=== PATIENT | male | born 1930 | race Caucasian/White ===

== ENCOUNTER → 2016-05-24 | Outpatient (CLI) | payer MEDICARE, BC ==
[2016-05-24 17:08] LABS: Anion Gap 9 mmol/L; Blood Urea Nitrogen 17 mg/dL (9-20); Carbon Dioxide 26 mmol/L (22-30); Chloride 104 mmol/L (98-107); Non-African American GFR(MDRD) >60 (>60 ml/min/1.73 sqM); Potassium 4.4 mmol/L (3.5-5.1); Sodium 139 mmol/L (137-145)
== END | disposition home or self-care (01) ==
LOC: LABWHC1 16:31
PROVIDERS: ATTEND Internal Medicine Cardiovascular Disease
DX: R00.1 Bradycardia, unspecified (principal)
CPT/HCPCS: 36415; 80051; 82565; 84443; 84520

== ENCOUNTER → 2016-06-04 | Outpatient (CLI) | payer MEDICARE, BC ==
[2016-06-04 10:01] LABS: EKG EKG PERFORMED
[2016-06-04 11:09] LABS: Basophils # (A) 0.1 k/uL (0-0.2); Basophils % (A) 1 %; CHCM 32.8; Eosinophils # (A) 0.1 k/uL (0-0.7); Eosinophils % (A) 1 %; HCT 46.3 % (39.0-53.0); HDW 2.48; Luc # (Auto) 0.14; Luc % (Auto) 2; Lymphocytes # (A) 1.4 k/uL (1.0-4.8); Lymphocytes % (A) 15 %; MCH 29.8 pg (25.0-35.0); MCHC 32.4 g/dL (31.0-37.0); MCV 91.8 fL (80.0-100.0); Mean Platelet Volume 7.2; Monocytes # (A) 0.4 k/uL (0-1.0); Monocytes % (A) 4 %; Neutrophils % (A) 76 %; RBC 5.04 m/uL (4.30-5.90); RDW 13.1 % (11.5-15.5); WBC 9.2 k/uL (3.8-10.6); WBC (Perox) 8.93
[2016-06-04 11:28] LABS: Appearance,Urine Clear (Clear); Bilirubin,Urine Negative (Negative); Glucose,Urine (UA) Negative (Negative); Ketones,Urine Negative (Negative); Leukocyte Esterase,Urine Negative (Negative); Mucus,Urine Rare /hpf; Nitrite,Urine Negative (Negative); Particle Count 2239; Protein,Urine 1+ (Negative); Specific Gravity,Urine 1.015 (1.001-1.035); Squamous Epithelial Cell,Urine <1 /hpf (0-4); UA Billing (MACRO vs. MICRO) MICRO; Urobilinogen,Urine <2.0 mg/dL (<2.0); WBC,Urine <1 /hpf (0-5)
[2016-06-04 11:32] LABS: ALT 33 U/L (21-72); AST 33 U/L (17-59); Alkaline Phosphatase 55 U/L (38-126); Anion Gap 9 mmol/L; Blood Urea Nitrogen 22 mg/dL (9-20); Calcium 9.5 mg/dL (8.4-10.2); Carbon Dioxide 25 mmol/L (22-30); Chloride 108 mmol/L (98-107); Glucose 177 mg/dL (74-99); Non-African American GFR(MDRD) >60 (>60 ml/min/1.73 sqM); Potassium 4.2 mmol/L (3.5-5.1); Sodium 142 mmol/L (137-145); Total Bilirubin 0.8 mg/dL (0.2-1.3); Total Protein 6.5 g/dL (6.3-8.2)
[2016-06-04 12:35] LABS: INR 1.1 (<1.1); Prothrombin Time 10.8 sec (9.0-12.0)
== END | disposition home or self-care (01) ==
LOC: LABPAT 09:50
PROVIDERS: ATTEND Orthopaedic Surgery
DX: Z01.818 Encounter for other preprocedural examination (principal); Z01.812 Encounter for preprocedural laboratory examination; I44.0 Atrioventricular block, first degree
CPT/HCPCS: 80053; 81001; 85025; 85610; 85730; 87070; 93005

== ENCOUNTER 2016-06-14 06:11 | Inpatient (IN) | payer MEDICARE, BC ==
--- NOTE | 2016-05-27 22:19 | CONS ---
DATE OF CONSULTATION: REASON FOR CONSULTATION: Presurgical medical clearance Mr. Luis Chaney is an 85-year-old gentleman who has been having problems with left knee. He cannot ambulate. Pain control is difficult at times. Plans are for surgery on June [address] Justice at [facility] for left knee arthroplasty. The patient does have a past medical history of hypertension, type 2 diabetes, atherosclerotic heart disease, BPH. He is also obese. He does have hyperlipidemia. Home medications include: 1. Glipizide 10 mg twice a day for sugar. 2. Finasteride 5 mg daily for BPH. 3. Losartan 50 mg daily for hypertension. 4. He has used naproxen 500 mg as needed p.r.n. for pain. He has had a previous right knee surgery. He has had trigger finger release and carpal tunnel bilaterally. A previous appendectomy and hernia repair also in the past. He has element of spinal stenosis and also previous history of prostate malignancy and no evidence of metastatic disease. Review of systems is negative for any unusual shortness of breath and chest pain. No nausea, vomiting. Denied any urinary or bowel symptoms. No visual disturbances. Basically related more to the left knee pain. Family history is positive for diabetes. SOCIAL HISTORY: The patient does not smoke. He lives locally with his and no history of any excessive alcohol usage. On physical examination, he is an alert gentleman in no acute distress, pleasant, his blood pressure is 130/60 with a pulse of 64 and regular. Height 68 inches with a weight of 256.4 pounds and his BMI is 39. Head and neck exam unremarkable. No carotid bruits or adenopathy or thyromegaly detected. Lungs were clear. Heart tones were regular, with without murmurs. ABDOMEN: Obese but nontender without organomegaly. Extremities revealed some grade 1 edema. NEUROLOGICAL: He is alert and oriented. Cranial nerves intact. No focal weakness noted. The patient has had labs done in the hospital and also had recent check-up and EKG by cardiology who cleared him for from the proposed surgery. At this point, the patient does have cardiovascular risk factors along with his age and obesity, which due raise his risk to some extent and other past medical history as stated above, but generally he has cardiovascular status is stable and I see no definite contraindication to planned surgery. We recommended to the patient to hold his glipizide the night prior to surgery. His sugars run a bit low in the morning. He can remain on his finasteride and losartan and take his losartan was a small sip of water in the morning prior to his surgery. Place in the record on this chart. Once again scheduled for the first of June. Patient to call if any questions, concerns or problems. Please note the patient has been made aware to stop his naproxen 7 days prior to the surgery, not to take any anti-inflammatory medications. CARLOS
[2016-06-09 15:32] VITALS: BMI 45.1
[~2016-06-14 06:11] MED LIST: ACETAMINOPHEN TAB 500 MG TAB PO ONE; DEXAMETHASONE SOD PHOSPHATE 10 MG/ML 1 ML VIAL IV ONE; HYDROmorphone 1 MG/ML 1 ML SYRINGE IVP PRN; LIDOCAINE 1% 20 ML VIAL (10MG/ML) FOR IV START INTRADERMA PRN; MELOXICAM 7.5 MG TAB PO ONE; MIDAZOLAM 2 MG/2 ML VIAL IV PRN; ONDANSETRON 4 MG/2 ML VIAL IVP ONE; TRANEXAMIC ACID 1,000 MG in SODIUM CHLORIDE 0.9% 100 ML IVPB ONE; ceFAZolin 2 GM in SODIUM CHLORIDE 0.9% 100 ML IVPB ONE
[2016-06-14] MEDS: LACTATED RINGERS 1,000 ML IV SCH (07:08)
[2016-06-14 07:23] LABS: Glucose,Whole Blood 84 mg/dL (75-99)
[2016-06-14] MEDS ORDERED: ROPIVACAINE 246.25 MG, EPINEPHrine 0.5 MG, KETOROLAC 30 MG, cloNIDine HCL/PF 80 MCG, WA... MISCELLANE STA ×5 (07:41)
[2016-06-14] MEDS ORDERED: PHENYLEPHRINE-0.9% NACL SYG 1 MG/10 ML SYRINGE ONE (07:53)
[2016-06-14] MEDS ORDERED: SODIUM CHLORIDE 0.9% 100 ML BAG ONE (07:53)
[2016-06-14] MEDS ORDERED: GLYCOPYRROLATE 0.2 MG/ML 2 ML VIAL ONE (07:53)
[2016-06-14] MEDS ORDERED: ePHEDrine 50 MG/ML 1 ML AMP ONE (07:53)
[2016-06-14] MEDS ORDERED: TRANEXAMIC ACID 1,000 MG/10 ML VIAL ONE (07:53)
[2016-06-14] MEDS ORDERED: PROPOFOL 10 MG/ML 20 ML VIAL IV ONE (07:53)
[2016-06-14] MEDS ORDERED: fentaNYL (PF) 50 MCG/ML 2 ML AMP ONE (07:53)
[2016-06-14] MEDS ORDERED: MIDAZOLAM 2 MG/2 ML VIAL ONE (07:53)
[2016-06-14] MEDS ORDERED: LACTATED RINGERS 1,000 ML IV ONE (08:48)
[2016-06-14] MEDS ORDERED: ceFAZolin 3,000 MG in SODIUM CHLORIDE 0.9% IRRIGATIO 3,000 ML IRRIGATION ONE (08:48)
[2016-06-14] MEDS ORDERED: DIAZEPAM 5 MG TAB PO PRN ×2 (10:55)
[2016-06-14] MEDS ORDERED: ACETAMINOPHEN TAB 325 MG TAB PO PRN (10:55)
[2016-06-14] MEDS ORDERED: BISACODYL 10 MG SUPP RECTAL PRN (10:55)
[2016-06-14] MEDS ORDERED: NA PHOS,M-B/NA PHOS,DI-BA 133 ML ENEMA RECTAL PRN (10:55)
[2016-06-14] MEDS ORDERED: HYDROmorphone 1 MG/ML 1 ML SYRINGE IVP PRN ×3 (10:55)
[2016-06-14] MEDS ORDERED: ONDANSETRON 4 MG/2 ML VIAL IVP PRN (10:55)
[2016-06-14] MEDS ORDERED: NALOXONE 0.4 MG/ML 1 ML VIAL IV PRN (10:55)
[2016-06-14] MEDS ORDERED: MAGNESIUM HYDROXIDE 2,400 MG/10 ML CUP PO PRN (10:55)
[2016-06-14] MEDS ORDERED: HYDROcodone/APAP 5-325MG 1 EACH TAB PO PRN (10:55)
[2016-06-14 11:23] LABS: Glucose,Whole Blood 139 mg/dL (75-99)
--- NOTE | 2016-06-14 11:26 | XR ---
EXAMINATION TYPE: XR knee limited LT DATE OF EXAM ORDERED: 06/14/2016 11:19 AM HISTORY: Postop arthroplasty. COMPARISON: None. FINDINGS: A left knee arthroplasty has been performed. Prosthetic elements appear in good position. There is subcutaneous and intra-articular air. IMPRESSION: STATUS POST LEFT ARTHROPLASTY.
[2016-06-14] MEDS: HYDROcodone/APAP 5-325MG 1 EACH TAB PO PRN ×2 (14:03→20:36)
[2016-06-14] MEDS: hydrOXYzine PAMOATE 25 MG CAP PO PRN ×2 (14:04→20:35)
--- NOTE | 2016-06-14 14:40 | P.OP ---
Date of Procedure: 06/14/16 Procedure(s) Performed: PREOPERATIVE DIAGNOSIS: Left knee severe osteoarthritis with genu varum POSTOPERATIVE DIAGNOSIS: Left knee severe osteoarthritis with genu varum OPERATION: Left knee cemented total replacement arthroplasty. ANESTHESIA: Spinal ESTIMATED BLOOD LOSS: 100 ml. FOOD SERVICE MANAGER: Ainsley Evangelista PA-C (assistance with: patient positioning, retraction, exposure, hemostasis, leg positioning, implantation, irrigation, closure, dressing) COMPLICATIONS: None apparent. COMPONENTS IMPLANTED: Adbulaziz tivanium NexGen posterior cruciate substituting. Metal on polyethylene synthetic articulation INDICATIONS: Mr. Chaney is an 85-year-old male with a history of severe left knee osteoarthritis. He has already undergone right knee replacement in the past. The operation of knee replacement has been discussed at length in the office, as well as potential risks and complications. These are inclusive of, but not limited to: bleeding, infection, scarring, discomfort, blood vessel and nerve damage, need for further surgery, failure to relieve symptoms, persistence , recurrence, or worsening of problems, loosening, dislocation, wear, blood clot , pulmonary embolism, , gait dysfunction, stiffness, and other risks as discussed in the office. 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 Considering that skin testing is generally not a very accurate way of testing in vivo metallic hypersensitivity, I feel that it is prudent to proceed with implantation of components that do not contain nickel. We will therefore be using the NexGen tivanium implants. The patient elects to proceed and the consent form has been signed. PROCEDURE: The patient was taken to the operating room and positioned on the operating room table in the supine position. Anesthesia was initiated. Care was taken to make sure that all pressure points were adequately padded. The operative lower extremity was prepped and draped in the usual aseptic fashion using ChloraPrep. Ioban drape was used for the case and the patient received intravenous antibiotics within one hour of the incision. A pneumotourniquet and leg ray were used for the case. The limb was exsanguinated with an Esmarch bandage and the tourniquet was inflated to 350 mmHg. Time-out was called confirming the patient's identity, side, procedure and administration of antibiotics. The incision was then created midline directly over the knee, carried down through skin and into the subcutaneous tissues and down to fascia. Full thickness subcutaneous medial flap was developed. Medial parapatellar arthrotomy was performed and the interior of the knee was inspected. There was end-stage osteoarthritis of the knee with a mild to moderate genu varum type deformity. Also noted was material and mildly inflamed synovial tissue consistent with chronic gouty arthritis. The fat pad was excised and proximal medial release on the tibia was completed using meticulous dissection and a curved osteotome. The anterior cruciate ligament was taken down. Note was made of significant attrition of the anterior and significant degenerative appearance of the posterior cruciate ligaments. The exposure was excellent. The knee was flexed 90 degrees and the patella was everted. A spot was chosen on the femur approximately 1 cm anterior to the posterior cruciate ligament insertion and an intramedullary hole was created within the femur. The intramedullary guide was then set to 5 degrees of valgus. The distal cutting block was attached and pinned into position. An appropriate amount of distal femoral resection was set. The oscillating saw was then used to make the distal femoral cut. This cut was confirmed to be flat with the flat end of an osteotome. The retractors were placed around the tibia and the tibial surface was addressed. The angle and depth of resection was adjusted using an extramedullary cutting guide. The guide had a built-in 3 degree posterior slope cut. Once the cutting guide was adjusted appropriately and in line with the axis of the tibia and confirmed to be in good position in relation to the second metatarsal and transmalleolar axis, the tibial cut was then created with protection of the posterior neurovascular structures and the collateral ligaments. The tibial cut surface was removed and sized. Femoral sizing was then accomplished using anterior referencing. Care was taken to analyze the posterior condyles for signs of deficiency or severe wear, and adjustments to the guide were made, as appropriate. 3 degree external rotation pins were placed. The cutting jig for the femur was applied to these pins. The planned cuts were further analyzed prior to performing them with the oscillating saw. No femoral notching was produced. Bone fragments were removed and the cut surfaces were finished, as necessary, with a reciprocating saw. Spacer block technique was then used to confirm that the flexion and extension gaps were equal. Soft tissue releases and adjustment of the tibial and/or femoral cuts were made, as necessary, until the gaps were equal. This included release of the posterior cruciate ligament, which was tight in this patient and , if left unreleased, would have resulted in poor kinematics and possibly early loosening. The femur was then further finished for a posterior cruciate ligament substituting component. Patellar resurfacing was performed using a reamer. The size of the required patellar component was estimated and the patellar surface was then reamed down to a residual thickness which would recreate the [place] thickness with the component. The placement of the patellar component was influenced by the degree of patellar subluxation, if any, noted on the preoperative x-rays. Prior to placing trial components, anesthetic solution consisting of ropivicaine with epinephrine, ketorolac, and clonidine was injected carefully and methodically in a grid pattern using aspiration technique into the soft tissue around the knee circumferentially, starting with the deeper tissues first and progressing to fascia, and then finally the skin/subcutaneous tissue. Particular care was taken when injecting the posterior capsule. The trial components were inserted. The tibial tray was allowed to self center and the patella was noted to track very well. The position of the tibial component was marked and the tibia was then finished for a stemmed tibial component. Cement was mixed on the back table and applied to the final components. Trial components were removed and the cut surfaces of the bone were pulse lavaged thoroughly and dried. Cement was then applied to the tibial surface and pressurized into the surface using finger pressurization technique. The tibial component was then applied and excess cement was removed after it was impacted securely and noted to be flush with the cut surface. In similar fashion, the cement was applied to the cut femoral surface, pressurized in using finger pressurization and the component was impacted into place. Excess cement was removed. The polyethylene spacer was then implanted and locked into position. The patellar component was then applied in similar technique and a patellar clamp was used to hold the patella in place as the cement hardened. Once the cement had fully hardened, the knee was reinspected. Any other cement extrusion was removed and final kinematic testing showed range of motion from 0 to 130 degrees with excellent stability, both medially and laterally and appropriate alignment of the leg. Patellar tracking was excellent. The knee was then thoroughly pulse lavaged with normal saline. The tourniquet was deflated and hemostasis was obtained with electrocautery and IV tranexamic acid, 1 g given prior to inflation of the tourniquet and another gram given at the time of closure. Closure was with #2 Ethibond in the fascia and supplemented with #2 Quill, 2-0 Vicryl suture was used for the subcutaneous tissues and 3-0 Quill for the skin. Dermabond/Steri-Strips were then applied. A lightly compressive dressing was applied using Webril and an Víctor wrap. The patient was then transferred [facility] and taken to the recovery room in stable condition. Sponge and needle counts were correct.
[2016-06-14] MEDS: ceFAZolin 2 GM in SODIUM CHLORIDE 0.9% 100 ML IVPB SCH (15:22)
[2016-06-14] MEDS: SODIUM CHLORIDE 0.9% 1,000 ML IV SCH (15:23)
[2016-06-14] MEDS ORDERED: ACETAMINOPHEN TAB 500 MG TAB PO PRN (17:20)
[2016-06-14] MEDS ORDERED: diphenhydrAMINE 25 MG CAP PO PRN (17:25)
--- NOTE | 2016-06-14 17:42 | P.PN ---
Progress Note - Text The patient is an 85-year-old gentleman who underwent left knee arthroplasty earlier today. He does have comorbidities including underlying obesity, type 2 diabetes, hypertension, and atherosclerotic heart disease along with BPH and hyperlipidemia. Presently though he states he is feeling well. He is sitting in the chair at the side of the bed. He states his pain has been very well controlled. He denies any chest pain or shortness of breath. No nausea or vomiting. Patient's pulse is 72 and blood pressure 128/81 and he is 99% saturated on 2 L. Temperature is 97.1. Head and neck exam unremarkable. Lung and heart exam was clear and regular. Abdomen is obese but nontender. No unusual distal edema noted. No focal neurological deficits. He is alert and oriented. Blood sugar earlier was 139. Impressions and plans: Patient with comorbidities as stated above. We will renew his diabetic and cardiac/blood pressure medications. Advance as per orthopedics.
[2016-06-14 17:50] LABS: Glucose,Whole Blood 266 mg/dL (75-99)
[2016-06-14] MEDS: FINASTERIDE 5 MG TAB PO SCH (20:11)
[2016-06-14] MEDS: glipiZIDE 10 MG TAB PO SCH (20:11)
[2016-06-14] MEDS: ASPIRIN 325 MG TAB PO SCH (20:11)
[2016-06-14] MEDS: INSULIN LISPRO (humaLOG) 300 UNIT/3 ML VIAL SQ SCH (20:12)
[2016-06-14] MEDS: SENNOSIDES-DOCUSATE SODIUM 1 EACH TAB PO SCH (20:12)
[2016-06-14 20:22] LABS: Glucose,Whole Blood 277 mg/dL (75-99)
[2016-06-14] MEDS ORDERED: TEMAZEPAM 15 MG CAP PO PRN (22:00)
[2016-06-15] MEDS: ceFAZolin 2 GM in SODIUM CHLORIDE 0.9% 100 ML IVPB SCH (00:26)
[2016-06-15] MEDS: LACTATED RINGERS 1,000 ML IV SCH ×2 (01:28→21:44)
[2016-06-15] MEDS: HYDROcodone/APAP 5-325MG 1 EACH TAB PO PRN ×4 (04:09→20:16)
[2016-06-15] MEDS: hydrOXYzine PAMOATE 25 MG CAP PO PRN ×4 (04:09→20:17)
[2016-06-15 07:24] LABS: Glucose,Whole Blood 149 mg/dL (75-99)
--- NOTE | 2016-06-15 07:40 | P.PN ---
Progress Note - Text The patient is a 85-year-old gentleman who yesterday underwent left knee arthroplasty. Today he is up in bed alert and oriented. States his left knee pain is fairly well-controlled. He denies any problems with chest pain or shortness of breath. No nausea or vomiting. He does have comorbidities that include obesity, type 2 diabetes, hypertension and atherosclerotic heart disease along with BPH and hyperlipidemia. Vital signs this morning reveal temperature 97.2 last pulse was 67 and respirations 16 and nonlabored. Blood pressure 112/54 and he is 95% saturated on room air. Lung and heart examination is clear and regular. Abdomen nontender. No distal extremity edema. Once again he is alert and oriented with normal cranial nerves and no focal weakness noted. Laboratory: Blood sugars in the night were up in the 200s but are now down to 149 this morning. Impressions and plans: Patient is on his diabetic medication and blood pressure medication. He is on Accu-Cheks and coverage if needed. Can be progressed as per orthopedics.
[2016-06-15 07:42] LABS: Basophils % (A) 0 %; CH 30.2; CHCM 33.2; Eosinophils % (A) 0 %; HCT 38.4 % (39.0-53.0); HDW 2.48; HGB 12.6 gm/dL (13.0-17.5); Luc # (Auto) 0.24; Luc % (Auto) 1; Lymphocytes # (A) 0.9 k/uL (1.0-4.8); Lymphocytes % (A) 5 %; MCHC 32.8 g/dL (31.0-37.0); MCV 91.4 fL (80.0-100.0); Mean Platelet Volume 7.1; Monocytes # (A) 1.1 k/uL (0-1.0); Monocytes % (A) 6 %; Neutrophils # (A) 15.1 k/uL (1.3-7.7); Neutrophils % (A) 87 %; RDW 12.9 % (11.5-15.5); WBC 17.3 k/uL (3.8-10.6); WBC (Perox) 18.34
[2016-06-15] MEDS ORDERED: LOSARTAN 50 MG TAB PO SCH (09:00)
--- NOTE | 2016-06-15 09:10 | P.PN ---
Subjective Principal diagnosis: Status post left total knee arthroplasty Patient is pleasant 85-year-old male seen at bedside this morning. He is postop day #1 from left total knee arthroplasty Per Dr. Justice. He's doing well. He has some pain at the surgical site as expected. He has no new complaints. He denies numbness, tingling or calf pain. Review of systems negative for fever, chills, chest pain, shortness breath, nausea, vomiting, dizziness, headaches, slurred speech or other. Objective - Vital Signs Vital signs: Vital Signs Temp 97.2 F L 06/15/16 07:36 Pulse 63 06/15/16 07:36 Resp 16 06/15/16 01:15 BP 112/54 06/15/16 07:36 Pulse Ox 95 06/15/16 07:36 Intake & Output 06/14/16 06/15/16 06/15/16 18:59 06:59 18:59 Intake Total 1711 500 Output Total 425 1200 350 Balance 1286 -700 -350 Weight 115.666 kg Intake: IV 1711 500 Sodium Chloride 0.9% 1, 500 000 ml @ 50 mls/hr IV . Q20H [facility] Rx#:[id number] Output: Urine 375 1200 350 Uretheral (Rahman) 1200 350 Estimated Blood Loss 50 Other: Voiding Method Indwelling Catheter Indwelling Catheter - Exam Social left lower shoulder shows a benign surgical wound. There is no active bleeding, dehiscence or drainage. Neurovascular status intact with motor and sensation throughout the left lower extremity. Calf is soft and nontender. 2+ dorsalis pedis pulse and less than 2 second cap refill is present. - Constitutional General appearance: Present: no acute distress - Psychiatric Psychiatric: Present: A&O x's 3, appropriate affect, intact judgment & insight - Labs CBC & Chem 7: 06/15/16 06:51 Labs: Abnormal Lab Results - Last 24 Hours (Table) 06/14/16 06/14/16 06/14/16 Range/Units 11:21 17:48 20:09 WBC (3.8-10.6) k/uL RBC (4.30-5.90) m/uL Hgb (13.0-17.5) gm/dL Hct (39.0-53.0) % Neutrophils # (1.3-7.7) k/uL Lymphocytes # (1.0-4.8) k/uL Monocytes # (0-1.0) k/uL POC Glucose (mg/dL) 139 H 266 H 277 H (75-99) mg/dL 06/15/16 06/15/16 Range/Units 06:51 07:22 WBC 17.3 H (3.8-10.6) k/uL RBC 4.20 L (4.30-5.90) m/uL Hgb 12.6 L (13.0-17.5) gm/dL Hct 38.4 L (39.0-53.0) % Neutrophils # 15.1 H (1.3-7.7) k/uL Lymphocytes # 0.9 L (1.0-4.8) k/uL Monocytes # 1.1 H (0-1.0) k/uL POC Glucose (mg/dL) 149 H (75-99) mg/dL Assessment and Plan (1) Osteoarthritis of left knee Narrative/Plan: We'll continue with routine postop orthopedic protocol including pain management , wound care, physical therapy, DVT prophylaxis and medical management. Plan is for him to discharge to extended care facility for rehabilitation in the next 2 days. Status: Acute Time with Patient: Less than 30
[2016-06-15] MEDS: INSULIN LISPRO (humaLOG) 300 UNIT/3 ML VIAL SQ SCH ×4 (09:22→13:03)
[2016-06-15] MEDS: glipiZIDE 10 MG TAB PO SCH ×2 (09:24→20:19)
[2016-06-15] MEDS: ASPIRIN 325 MG TAB PO SCH ×2 (09:24→20:19)
[2016-06-15] MEDS: MELOXICAM 7.5 MG TAB PO SCH (09:25)
[2016-06-15] MEDS: LOSARTAN 50 MG TAB PO SCH (09:25)
[2016-06-15] MEDS: SODIUM CHLORIDE 0.9% 1,000 ML IV SCH ×2 (09:30→21:44)
[2016-06-15 12:12] LABS: Glucose,Whole Blood 152 mg/dL (75-99)
[2016-06-15 16:52] LABS: Glucose,Whole Blood 93 mg/dL (75-99)
[2016-06-15] MEDS: FINASTERIDE 5 MG TAB PO SCH (20:19)
[2016-06-15] MEDS: SENNOSIDES-DOCUSATE SODIUM 1 EACH TAB PO SCH (20:19)
[2016-06-15 20:52] LABS: Glucose,Whole Blood 103 mg/dL (75-99)
[2016-06-16] MEDS: HYDROcodone/APAP 5-325MG 1 EACH TAB PO PRN ×3 (04:40→18:11)
[2016-06-16] MEDS: hydrOXYzine PAMOATE 25 MG CAP PO PRN (04:40)
[2016-06-16 07:17] LABS: Glucose,Whole Blood 63 mg/dL (75-99)
[2016-06-16 07:35] LABS: Glucose,Whole Blood 73 mg/dL (75-99)
--- NOTE | 2016-06-16 07:48 | P.PN ---
Progress Note - Text The patient is a 85 year old gentleman who 2 days previous underwent left knee arthroplasty. Patient does have comorbidities with underlying obesity, type 2 diabetes, hypertension and atherosclerotic heart disease along with BPH and hyperlipidemia. Patient today is sitting in a chair at the side of the bed. Denies any chest pain or shortness of breath. No nausea or vomiting. He did complain that he felt a little bit off with his blood sugar at 63 this morning but feels better after taking some juice with sugar. Last vital signs reveal temperature of 99 with a pulse of 68 and respirations normal at 16. Blood pressure 124/58 and he is 93% saturated on room air. Lung and heart examination is clear. Abdomen nontender. There is no unusual distal edema in the lower extremities. No calf tenderness. He is alert and oriented without any focal neurological deficits. Blood sugar once again was 63 but increased up to 73. Impressions and plan: Overall patient does appear to be progressing well post knee surgery. We have decreased his glipizide from 10 mg down to 5 mg. We'll continue to monitor his blood sugars. Continue to progress as per orthopedics.
[2016-06-16] MEDS: ASPIRIN 325 MG TAB PO SCH ×2 (09:27→21:23)
[2016-06-16] MEDS: LOSARTAN 50 MG TAB PO SCH (09:27)
[2016-06-16] MEDS: MELOXICAM 7.5 MG TAB PO SCH (09:27)
--- NOTE | 2016-06-16 10:26 | P.PN ---
Subjective Principal diagnosis: Primary osteoarthritis left knee. Status post total left knee arthroplasty. This is an 85-year-old male who is status post total left knee arthroplasty. He is doing well from an orthopedic standpoint. He has no new complaints or concerns today. He is awaiting transfer to inpatient rehab. Objective - Vital Signs Vital signs: Vital Signs Temp 99.0 F 06/16/16 01:29 Pulse 68 06/16/16 01:29 Resp 16 06/16/16 01:29 BP 124/58 06/16/16 01:29 Pulse Ox 93 L 06/16/16 01:29 Intake & Output 06/15/16 06/16/16 06/16/16 18:59 06:59 18:59 Intake Total 750 Output Total 650 Balance 100 Intake: IV 150 Sodium Chloride 0.9% 1, 150 000 ml @ 50 mls/hr IV . Q20H [facility] Rx#:[id number] Oral 600 Output: Urine 650 Uretheral (Rahman) 350 Other: Voiding Method Urinal Toilet # Voids 1 1 1 - Exam This is a pleasant 85-year-old male in no acute distress. He is alert and oriented 3. He is ambulating in the hallway with assistance. His dressing is clean, dry and intact. He has mild soft tissue swelling about the calf. He has full foot and ankle motion without difficulty or pain. Neurovascular status to the lower extremities intact. - Labs CBC & Chem 7: 06/15/16 06:51 Labs: Abnormal Lab Results - Last 24 Hours (Table) 06/15/16 06/15/16 06/16/16 Range/Units 12:11 20:40 07:14 POC Glucose (mg/dL) 152 H 103 H 63 L (75-99) mg/dL 06/16/16 Range/Units 07:30 POC Glucose (mg/dL) 73 L (75-99) mg/dL Assessment and Plan (1) Status post total left knee replacement Status: Acute (2) Osteoarthritis of left knee Status: Acute Plan: The clinical findings are discussed the patient and his family. The patient is insisting on inpatient rehab. We are planning discharge to rehab tomorrow.
[2016-06-16 12:12] LABS: Glucose,Whole Blood 148 mg/dL (75-99)
--- NOTE | 2016-06-16 13:42 | XR ---
EXAMINATION TYPE: XR chest 2V DATE OF EXAM: 06/16/2016 1:38 PM COMPARISON: NONE HISTORY: Extended-care facility placement TECHNIQUE: Frontal and lateral views of the chest are obtained. FINDINGS: There is no focal air space opacity, pleural effusion, or pneumothorax seen. The cardiac silhouette size is within normal limits. The patient is rotated. The osseous structures are intact. IMPRESSION: No acute cardiopulmonary process.
[2016-06-16 15:35] VITALS: RESP 16
[2016-06-16 16:57] LABS: Glucose,Whole Blood 130 mg/dL (75-99)
[2016-06-16] MEDS: glipiZIDE 10 MG TAB PO SCH (17:11)
[2016-06-16] MEDS: glipiZIDE 5 MG TAB PO SCH (17:13)
[2016-06-16] MEDS: SODIUM CHLORIDE 0.9% 1,000 ML IV SCH (17:14)
[2016-06-16 20:16] LABS: Glucose,Whole Blood 207 mg/dL (75-99)
[2016-06-16] MEDS: SENNOSIDES-DOCUSATE SODIUM 1 EACH TAB PO SCH (21:24)
[2016-06-16] MEDS: FINASTERIDE 5 MG TAB PO SCH (21:25)
[2016-06-17] MEDS: HYDROcodone/APAP 5-325MG 1 EACH TAB PO PRN ×3 (02:15→12:39)
[2016-06-17 07:24] LABS: Basophils % (A) 0 %; CH 30.5; CHCM 33.1; Eosinophils # (A) 0.6 k/uL (0-0.7); Eosinophils % (A) 4 %; HDW 2.43; HGB 13.6 gm/dL (13.0-17.5); Luc # (Auto) 0.37; Luc % (Auto) 3; Lymphocytes # (A) 3.1 k/uL (1.0-4.8); Lymphocytes % (A) 23 %; MCH 31.5 pg (25.0-35.0); MCHC 34.1 g/dL (31.0-37.0); MCV 92.5 fL (80.0-100.0); Mean Platelet Volume 6.9; Monocytes # (A) 1.1 k/uL (0-1.0); Monocytes % (A) 8 %; Neutrophils # (A) 8.4 k/uL (1.3-7.7); Neutrophils % (A) 62 %; RBC 4.32 m/uL (4.30-5.90); RDW 13.1 % (11.5-15.5); WBC 13.6 k/uL (3.8-10.6); WBC (Perox) 13.54
[2016-06-17] MEDS: ASPIRIN 325 MG TAB PO SCH (07:27)
[2016-06-17] MEDS: LOSARTAN 50 MG TAB PO SCH (07:27)
[2016-06-17] MEDS: MELOXICAM 7.5 MG TAB PO SCH (07:27)
[2016-06-17 07:28] LABS: Glucose,Whole Blood 104 mg/dL (75-99)
[2016-06-17] MEDS: glipiZIDE 5 MG TAB PO SCH (07:28)
[2016-06-17] MEDS: LACTATED RINGERS 1,000 ML IV SCH (07:28)
[2016-06-17] MEDS: hydrOXYzine PAMOATE 25 MG CAP PO PRN (07:36)
--- NOTE | 2016-06-17 07:41 | P.PN ---
Progress Note - Text The patient is an 85-year-old gentleman who 3 days previous underwent left knee arthroplasty. Patient does have underlying comorbidities with history of obesity, type 2 diabetes, hypertension and atherosclerotic heart disease along with BPH and hyperlipidemia. He states he had some difficulty sleeping last night. He is presently sitting up in the chair. He denies any chest pain or shortness of breath. No nausea or vomiting. States he has a bit more pain in the left knee area. Vital signs reveal temperature of 99 with a pulse of 87 respirations 16. Blood pressure is 140/65 and he is 92% saturated on room air. Lung and heart examination is clear. Regular. Abdomen obese but nontender. No unusual distal lower extremity edema. Neurologically he is alert. Oriented. Cranial nerves intact. No focal weakness noted. Laboratory: White count 13.6 with a hemoglobin 13.6 and a platelet count of 195. Blood sugar this morning is 104. Chest x-ray showed no acute process. Impressions and plans: Patient overall seems to be continuing to do well. Upon discharge would continue his medications that he is on presently in the hospital for his chronic medical concerns. Continue present dosages. If patient does go to [facility] on the [facility] I would be happy to follow him there. Please call for questions concerns or problems.
[2016-06-17 07:56] VITALS: BP 145/71; PULSE 74; TEMP 98.3
--- NOTE | 2016-06-17 08:23 | P.DS ---
Providers Date of admission: 06/14/16 06:11 Expected date of discharge: 06/17/16 Attending physician: Royal Justice Consults: 06/14/16 10:55 Consult Physician Routine Consulting Provider: Jason Leon Reason/Comments: medical management Do you want consulting provider notified?: Yes Primary care physician: Jason Leon - Discharge Diagnosis(es) (1) Status post total left knee replacement Current Visit: Yes Status: Acute (2) Osteoarthritis of left knee Current Visit: Yes Status: Acute Priority: Medium Hospital Course: This is a 85-year-old male who was last seen with complaint of continued left knee pain. The patient has a known history of degenerative arthritis of the left knee and presents to discuss surgical options. After discussion and consideration the patient elects to proceed with total left knee arthroplasty. The patient is seen preoperatively by Dr. Leon and cleared for surgery. The patient is admitted to [facility] for total left knee arthroplasty. The procedures performed without complication or sequelae. He is doing well postoperatively. Vital signs are stable at discharge. Labs are stable at discharge. the patient is ambulating well with walker with minimal assistance. He has some increased swelling to the knee is placed in a compressive Víctor wrap. The patient is discharged to rehab on postop day #3 pending medical clearance. Please see orders and refer to the [facility] rec for accurate list of medications. Plan - Discharge Summary New Discharge Prescriptions: Aspirin 325 mg PO BID #120 tab HYDROcodone/APAP 5-325MG [[place] 5-325] 1 - 2 each PO Q4-6H PRN #90 tab PRN Reason: Pain Sennosides-Docusate Sodium [Senokot-S] 1 tab PO BID #60 tablet Discharge Medication List Finasteride [Proscar] 5 mg PO HS 12/05/14 [History] Ibuprofen [Advil] 400 mg PO Q6HR PRN 12/05/14 [History] Losartan [Cozaar] 50 ng PO QAM 12/05/14 [History] glipiZIDE [Glucotrol] 10 mg PO BID 12/05/14 [History] Acetaminophen/Diphenhydramine [Tylenol PM 500-25mg] 1 tab PO HS PRN 06/09/16 [ History] Aspirin 325 mg PO BID #120 tab 06/17/16 [Rx] HYDROcodone/APAP 5-325MG [[place] 5-325] 1 - 2 each PO Q4-6H PRN #90 tab 06/17/16 [Rx] Sennosides-Docusate Sodium [Senokot-S] 1 tab PO BID #60 tablet 06/17/16 [Rx] Follow up Appointment(s)/Referral(s): Ainsley Evangelista, PAC [PHYSICIAN [employer]] - 2 Weeks Activity/Diet/Wound Care/Special Instructions: May bear weight as tolerated with walker. May shower if no drainage from incision. Compressive wrap to the left lower extremity if swelling persists. CPM 5-6 hours daily. Discharge Disposition: TRANSFER TO SNF/ECF
[2016-06-17 11:52] LABS: Glucose,Whole Blood 144 mg/dL (75-99)
== END 2016-06-17 15:15 | DRG 470 ==
LOC: 2ORMAIN 06:11 → 3SUR 10:56
PROVIDERS: ADMIT Orthopaedic Surgery; ATTEND Orthopaedic Surgery
PROC: 0SRD0J9 Replacement of Left Knee Joint with Synthetic Substitute, Cemented, Open Approach (ICD-10-PCS; principal; 2016-06-14 08:00)
DX: M17.12 Unilateral primary osteoarthritis, left knee (principal); E11.9 Type 2 diabetes mellitus without complications; I10 Essential (primary) hypertension; E66.9 Obesity, unspecified; E78.5 Hyperlipidemia, unspecified; I25.10 Atherosclerotic heart disease of native coronary artery without angina pectoris; L40.9 Psoriasis, unspecified; M1A.9XX0 Chronic gout, unspecified, without tophus (tophi); M21.162 Varus deformity, not elsewhere classified, left knee; M48.00 Spinal stenosis, site unspecified; N40.0 Benign prostatic hyperplasia without lower urinary tract symptoms; Z68.39 Body mass index [BMI] 39.0-39.9, adult; Z79.84 Long term (current) use of oral hypoglycemic drugs; Z79.899 Other long term (current) drug therapy; Z85.46 Personal history of malignant neoplasm of prostate; Z91.048 Other nonmedicinal substance allergy status
CPT/HCPCS: 71020; 85025; 88300

== ENCOUNTER → 2016-07-19 | Outpatient (CLI) | payer MEDICARE, BC | LOC: LABWHC1 15:45 | PROVIDERS: ATTEND Orthopaedic Surgery | DX: M25.562 Pain in left knee (principal); Z96.652 Presence of left artificial knee joint | CPT/HCPCS: 36415; 84439; 84443 ==

== ENCOUNTER → 2018-03-31 | Day surgery (SDC) | payer MEDICARE, BC ==
[2018-03-30 09:41] VITALS: BMI 42.9
[~2018-03-31] MED LIST changes: -ACETAMINOPHEN TAB 500 MG TAB PO ONE; +BUPIVACAIN-EPI 0.5%-1:200,000 30 ML VIAL SQ ONE; +GLYCOPYRROLATE 0.2 MG/ML 2 ML VIAL ONE; -HYDROmorphone 1 MG/ML 1 ML SYRINGE IVP PRN; +LACTATED RINGERS 1,000 ML IV SCH; -LIDOCAINE 1% 20 ML VIAL (10MG/ML) FOR IV START INTRADERMA PRN; +LIDOCAINE 1% INJ 10MG/ML (20 ML MDV) ONE; -MELOXICAM 7.5 MG TAB PO ONE; +MIDAZOLAM (PF) 2 MG/2 ML VIAL IV PRN; -MIDAZOLAM 2 MG/2 ML VIAL IV PRN; +PROPOFOL 10 MG/ML 20 ML VIAL IV ONE; +Pre Op ABX Message 1 EACH MISC MISCELLANE ONE; +SUCCINYLCHOLINE CHLORIDE 100 MG/5 ML SYR IV ONE; -TRANEXAMIC ACID 1,000 MG in SODIUM CHLORIDE 0.9% 100 ML IVPB ONE; -ceFAZolin 2 GM in SODIUM CHLORIDE 0.9% 100 ML IVPB ONE; +ePHEDrine SULFATE/0.9% NACL/PF 50 MG/5 ML SYRINGE IV ONE; +fentaNYL (PF) 50 MCG/ML 2 ML AMP ONE; +traMADol 50 MG TAB PO ONE
--- NOTE | 2018-03-31 12:45 | P.GSHP ---
History of Present Illness H&P Date: 03/31/18 Chief Complaint: Enlarged cervical lymph node The patient is a pleasant 87-year-old man who I was seen in the office due to some abdominal pain and change in bowel habits. At that time he is noted to have an enlarged right cervical lymph node. A lymph node biopsy was recommended. 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 pt states told he had irregular heart rate, constipation, rash on legs and back , prostate cancer, skin cancer History of Any Multi-Drug Resistant Organisms: None Reported Past Surgical History: Appendectomy, Hernia Repair, Joint Replacement, Orthopedic Surgery Additional Past Surgical History / Comment(s): freddy knee replacement, RIGHT BICEP TEAR. HEMORROIDRECTOMY/fistula. removal of skin cancer from cheek, rt hand carpal tunnel x 2, left carpal tunne, Past Anesthesia/Blood Transfusion Reactions: Family History of Problems w/ Anesthesia Additional Past Anesthesia/Blood Transfusion Reaction / Comment(s): PONV Smoking Status: Never smoker - Past Family History Brother(s) Family Medical History: Cancer Additional Family Medical History / Comment(s): colon Father Family Medical History: Cancer Mother Family Medical History: Chest Pain / Angina Medications and Allergies Home Medications Medication Instructions Recorded Confirmed Type Finasteride [Proscar] 5 mg PO HS 12/05/14 03/30/18 History Losartan [Cozaar] 50 ng PO QAM 12/05/14 03/30/18 History glipiZIDE [Glucotrol] 10 mg PO BID 12/05/14 03/30/18 History Acetaminophen/Diphenhydramine 1 tab PO HS PRN 06/09/16 03/30/18 History [Tylenol PM 500-25mg] Aspirin [Adult Low Dose Aspirin EC] 81 mg PO DAILY 03/30/18 03/30/18 History Cholecalciferol [Vitamin D3] 2,000 unit PO DIRECTED 03/30/18 03/30/18 History Polyethylene Glycol 3350 [Miralax] 17 gm PO HS 03/30/18 03/30/18 History Allergies Allergy/AdvReac Type Severity Reaction Status Date / Time gluten Allergy Severe Rash/Hives Verified 03/30/18 09:19 carisoprodol [From Soma] Allergy Hallucinati Verified 03/30/18 09:19 ons lovastatin Allergy weak legs Verified 03/30/18 09:19 naproxen Allergy edema Verified 03/30/18 09:29 Surgical - Exam Osteopathic Statement: *. No significant issues noted on an osteopathic structural exam other than those noted in the History and Physical/Consult. - General well developed, well nourished, no distress - Eyes normal ocular movement - Neck 2 cm lymph node in the right anterior/superior cervical chain trachea midline - Respiratory normal respiratory effort, clear to auscultation - Cardiovascular Rhythm: regular - Abdomen Abdomen: soft, bowel sounds Assessment and Plan (1) Cervical lymphadenopathy Status: Acute Code(s): R59.0 - LOCALIZED ENLARGED LYMPH NODES SNOMED Code(s) : 764705936 Plan: Excisional lymph node biopsy. The procedure risk and complications were discussed. Questions were encouraged and answered. Further recommendations are pending pathology report.
[2018-03-31 13:43] LABS: Glucose,Whole Blood 84 mg/dL (75-99)
[2018-03-31 13:44] VITALS: RESP 16
[2018-03-31 14:12] LABS: Potassium 4.2 mmol/L (3.5-5.1)
--- NOTE | 2018-03-31 15:43 | P.OP ---
Date of Procedure: 03/31/18 Preoperative Diagnosis: Lymphadenopathy right neck Postoperative Diagnosis: Lymphadenopathy right neck Procedure(s) Performed: Excisional lymph node biopsy Anesthesia: LEE Surgeon: Vesta Plaza Estimated Blood Loss (ml): 10 Pathology: other (Lymph node) Condition: stable Disposition: PACU Indications for Procedure: Patient had a large anterior cervical chain lymph node in the right neck Operative Findings: 2.5 x 1.5 x 1.3 cm lymph node Description of Procedure: The patient's taken the operative suite where he is prepped and draped in the usual sterile manner under general endotracheal anesthetic. Local anesthetic was instilled into the skin and subcutaneous tissues. A skin incision is made along skin lines. The subcutaneous tissues are divided. The muscle fibers are bluntly opened along the direction of its fibers. The lymph node is then bluntly dissected free. It's brought up through the incision. The vessels and lymphatics are then individually clamped, cut, tied with 3-0 Vicryl suture. At that point everything appeared hemostatic. The subcutaneous tissues are closed with 3-0 Vicryl. The skin is closed with 4-0 Vicryl in a subcuticular manner. Steri-Strips and dressings were applied. He's taken recovery room in satisfactory condition. According to or personnel, WERE correct. Plan - Discharge Summary Discharge Rx Participant: No New Discharge Prescriptions: New traMADol HCL [Ultram] 50 mg PO Q4HR PRN 3 Days #12 tab PRN Reason: Pain No Action glipiZIDE [Glucotrol] 10 mg PO BID Losartan [Cozaar] 50 ng PO QAM Finasteride [Proscar] 5 mg PO HS Acetaminophen/Diphenhydramine [Tylenol PM 500-25mg] 1 tab PO HS PRN PRN Reason: PAIN/SLEEP Polyethylene Glycol 3350 [Miralax] 17 gm PO HS Aspirin [Adult Low Dose Aspirin EC] 81 mg PO DAILY Cholecalciferol [Vitamin D3] 2,000 unit PO DIRECTED Discharge Medication List Finasteride [Proscar] 5 mg PO HS 12/05/14 [History] Losartan [Cozaar] 50 ng PO QAM 12/05/14 [History] glipiZIDE [Glucotrol] 10 mg PO BID 12/05/14 [History] Acetaminophen/Diphenhydramine [Tylenol PM 500-25mg] 1 tab PO HS PRN 06/09/16 [ History] Aspirin [Adult Low Dose Aspirin EC] 81 mg PO DAILY 03/30/18 [History] Cholecalciferol [Vitamin D3] 2,000 unit PO DIRECTED 03/30/18 [History] Polyethylene Glycol 3350 [Miralax] 17 gm PO HS 03/30/18 [History] traMADol HCL [Ultram] 50 mg PO Q4HR PRN 3 Days #12 tab 03/31/18 [Rx] Follow up Appointment(s)/Referral(s): Vesta Plaza DO [Primary Care Provider] - 04/06/18 (Call for an appointment time) Activity/Diet/Wound Care/Special Instructions: Ice to the incision for 24 hours. Keep the dressing on until Tuesday. The dressing may then be removed and you may shower. Expect small amount of bruising and swelling. Call if you develop fever, chills, concerns about wound infection or other questions. Discharge Disposition: HOME SELF-CARE
[2018-03-31 16:02] VITALS: TEMP 97
[2018-03-31] MEDS: HYDROmorphone 0.5 MG/0.5 ML SYRINGE IVP PRN ×2 (16:10→16:16)
[2018-03-31 17:29] VITALS: BP 177/72; PULSE 68
== END | disposition home or self-care (01) ==
LOC: OR 12:55
PROVIDERS: ATTEND Surgery
DX: D36.0 Benign neoplasm of lymph nodes (principal); M19.90 Unspecified osteoarthritis, unspecified site; E11.42 Type 2 diabetes mellitus with diabetic polyneuropathy; I10 Essential (primary) hypertension; K21.9 Gastro-esophageal reflux disease without esophagitis; G47.33 Obstructive sleep apnea (adult) (pediatric); Z99.89 Dependence on other enabling machines and devices; Z85.46 Personal history of malignant neoplasm of prostate; Z85.828 Personal history of other malignant neoplasm of skin; Z80.0 Family history of malignant neoplasm of digestive organs; Z79.84 Long term (current) use of oral hypoglycemic drugs; Z79.82 Long term (current) use of aspirin; Z79.1 Long term (current) use of non-steroidal anti-inflammatories (NSAID); Z79.899 Other long term (current) drug therapy; Z88.8 Allergy status to other drugs, medicaments and biological substances; Z91.048 Other nonmedicinal substance allergy status
CPT/HCPCS: 80051; 38510; J1100; J2405; J2001; J3010; J0330; J2704; J1170; 88307; 88341; 88342

== ENCOUNTER → 2018-08-21 | Outpatient (CLI) | payer OTHER ==
--- NOTE | 2018-08-22 00:58 | CT ---
EXAMINATION TYPE: CT abdomen pelvis wo con DATE OF EXAM: 08/21/2018 COMPARISON: None HISTORY: 88-year-old male RT flank pain radiating to ribs, pt c/o pain for [address] DLP: 1468.30 mGycm. Automated exposure control for dose reduction was used. TECHNIQUE: Contiguous axial scanning of the abdomen and pelvis without IV contrast. Coronal and sagit catalino reconstructions performed. FINDINGS: Heart upper limits of normal in size without pericardial effusion. Extensive coronary vessel calcific ations are present. Some strandy atelectasis in the lower lungs without pleural effusion. Noncontrast appearance of the liver shows somewhat small right hepatic lobe of uncertain clinical sig nificance. Noncontrast appearance of the gallbladder, adrenal glands, right kidney, spleen, and pancr eas appear within normal limits. Nonspecific punctate calcification near the inferior pancreatic head . Exophytic 1.6 m hypodense lesion anterior lower pole left kidney inadequately characterized on this n oncontrast study, likely a cortical cyst. There is no hydronephrosis on either side. Retrocrural lymph nodes measure up to 1.3 cm. Retroperitoneal lymphadenopathy is demonstrated measuring up to to 2.7 and 2.1 cm within the left par a-aortic region and with poorly defined soft tissue encasing the left common iliac vessels measuring up to 4.5 cm, axial image 67. A short segment of the left ureter courses along the margin of this poorly defined soft tissue mass. No mesenteric lymphadenopathy. No dilated small bowel, free fluid, or free air. No significant stool burden. Occasional sigmoid dive rticulosis. No pericolonic inflammatory change. Mild circumferential bladder wall thickening with mild perivesicular fat stranding. Prostate gland me asures 5.0 cm wide with central calcifications. Right external iliac chain lymph node measures up to 1.8 cm. Left internal iliac chain lymphadenopath y measures up to 1.9 cm. Patulous left inguinal canal. No abnormal fluid collection in the pelvis. Calcification along the bilateral hamstrings origins suggesting possible underlying CPPD. Degenerative changes at the hips, SI joints, and advanced degenerative change throughout the visualiz ed spine. There is chronic-appearing superior endplate fracture T12 given the lack of paravertebral s oft tissue abnormality. IMPRESSION: 1. Retroperitoneal lymphadenopathy measuring up to 2.7 cm. Conglomerate shailesh mass partially encasin g the left common iliac vessels measures up to 4.5 cm. Retrocrural lymphadenopathy up to 1.3 cm and i nternal/external iliac chain lymphadenopathy measuring up to 1.9 cm. Correlate for lymphoma or metast atic disease. 2. A short segment of the left ureter courses along the margin of the left common iliac vessel mass. No hydronephrosis to suggest obstructive uropathy. 3. Circumferential bladder wall thickening. Correlate for possible cystitis.
== END | disposition home or self-care (01) ==
LOC: RADCTMAIN 13:57
DX: N32.89 Other specified disorders of bladder (principal); R59.0 Localized enlarged lymph nodes; R10.9 Unspecified abdominal pain
CPT/HCPCS: 74176

== ENCOUNTER → 2018-10-24 | Outpatient (CLI) | payer MEDICARE, BC ==
[2018-10-24 13:20] LABS: African American GFR (CKD) >90 (>60 ml/min/1.73 sqM); Blood Urea Nitrogen 26 mg/dL (9-20)
--- NOTE | 2018-10-24 15:24 | CT ---
EXAMINATION TYPE: CT abdomen pelvis w con DATE OF EXAM: 10/24/2018 COMPARISON: CT abdomen and pelvis August 21, 2018 HISTORY: Follow up prostate cancer. CT DLP: 2903.4 mGycm, Automated Exposure Control for Dose Reduction was Utilized. CONTRAST: CT scan of the abdomen and pelvis is performed with oral and with IV Contrast, patient injected with 100 mL of Isovue 300. FINDINGS: LUNG BASES: Coronary artery calcification and/or stents. Calcification at the level of mitral and aor tic involves. LIVER/GB: No significant abnormality is appreciated. PANCREAS: No significant abnormality is seen. SPLEEN: No significant abnormality is seen. ADRENALS: No significant abnormality is seen. KIDNEYS: Kidneys show some cortical thinning bilaterally. There is symmetric cortical medullary uptak e with delayed excretion on the left side as there is mild left-sided hydronephrosis. At level of pel ivy brim there is ill-defined fat stranding mid ureter level and soft tissue anterior to the iliopsoa s where there was prior adenopathy. Persistent abnormal adenopathy is noted. BOWEL: Oral contrast reaches level of splenic flexure. No suspicious small and large bowel dilatation . Some diverticula in the left and sigmoid colon. No convincing CT evidence for acute diverticulitis PROSTATE/SEMINAL VESICLES: Prostate gland is mildly enlarged, central TURP type defect though present superiorly. Central calcifications noted. Seminal vesicles both within normal limits. LYMPH NODES: Abnormal retroperitoneal lymph nodes axial image 40 stable or slightly larger from prior , the latter is suspected. Abnormal left periaortic lymph node measures 2.5 x 2.1 cm axial image 52 f airly stable from prior study image 55. Smaller lymph node posterior and inferior to this axial image 57 is felt stable at aortic bifurcation. Distal to this there is soft tissue encasing the left commo n iliac artery axial image 64 measuring approximately 4.0 x 3.6 cm extending into proximal internal a nd external carotid arteries after their origin. Abnormal lymph node along the left external iliac ch ain vessel axial image 73 is more prominent from prior study axial image 77 measuring 1.2 x 0.9 cm cu rrent exam. Slightly more prominent distal left external iliac chain lymph node on image 82 noted. OSSEOUS STRUCTURES: Persistent mild/moderate compression type fracture at T12 level. Straightening of thoracic spine. Moderate multilevel disc space narrowing and vacuum disc phenomenon. Moderate to sev ere multilevel spurring. Moderate to severe narrowing in both hip joints. OTHER: Small size fat containing inguinal hernias bilaterally.. IMPRESSION: Overall disease progression is felt present as there is now new mild left-sided hydroneph rosis and delayed excretion seen on current study due to obstructive infiltrative tumor adenopathy mi d ureter level.
== END | disposition home or self-care (01) ==
LOC: RADCTMAIN 12:17
PROVIDERS: ATTEND Internal Medicine Hematology & Oncology
DX: N13.30 Unspecified hydronephrosis (principal); D49.59 Neoplasm of unspecified behavior of other genitourinary organ; C61 Malignant neoplasm of prostate; Z88.8 Allergy status to other drugs, medicaments and biological substances
CPT/HCPCS: 82565; 84520; 74177; 36415; Q9967

== ENCOUNTER → 2018-10-30 | Outpatient (CLI) | payer MEDICARE, BC ==
--- NOTE | 2018-10-30 13:20 | US ---
EXAMINATION TYPE: US venous doppler duplex LE BI DATE OF EXAM: 10/30/2018 1:11 PM COMPARISON: NONE CLINICAL HISTORY: 88-year-old male M79.662, R22.42, M79.661, R22.41. SIDE PERFORMED: Patient states having swelling. No redness seen. No hx DVT. No blood thinners. TECHNIQUE: The lower extremity deep venous system is examined utilizing real time linear array sonog rosmery with graded compression, doppler sonography and color-flow sonography. FINDINGS: VESSELS IMAGED: External Iliac Vein (EIV) Common Femoral Vein Deep Femoral Vein Greater Saphenous Vein * Femoral Vein Popliteal Vein Small Saphenous Vein * Proximal Calf Veins (* superficial vessels) Limited visualization due to arterial shadow Right Leg: Negative for DVT Left Leg: Negative for DVT IMPRESSION: Exam limitations due to shadowing from atherosclerotic arterial calcifications. No evidence for DVT w ithin the bilateral lower extremities imaged from the groin to the upper calves along the visualized portions.
== END | disposition home or self-care (01) ==
LOC: RADUSWWP 12:34
PROVIDERS: ATTEND Internal Medicine Hematology & Oncology
DX: R22.41 Localized swelling, mass and lump, right lower limb (principal); R22.42 Localized swelling, mass and lump, left lower limb; M79.662 Pain in left lower leg; M79.661 Pain in right lower leg; I70.293 Other atherosclerosis of native arteries of extremities, bilateral legs
CPT/HCPCS: 93970

== ENCOUNTER → 2018-11-29 | Outpatient (CLI) | payer MEDICARE, BC ==
--- NOTE | 2018-11-29 15:50 | MR ---
EXAMINATION TYPE: MR lumbar spine wo con DATE OF EXAM: 11/29/2018 COMPARISON: CT abdomen and pelvis October 24, 2018 and older study August 21, 2018 HISTORY: L1 Comp Fx, lumbar radiculopathy, history of prostate cancer all per older. Right hip pain f or 2 years per patient. TECHNIQUE: Multiplanar, multisequence imaging of the lumbar spine is performed without IV contrast. FINDINGS: Sagittal images of the lumbar spine redemonstrate mild to moderate compression fracture def ormity anteriorly at T12 level felt subacute or chronic in age as was more acute in appearance on Aug CT. There is a suspicious area or anterior T1 vertebra of low T1 and increased T2 signal seen bes t sagittal image 10 effecting right vertebra with perhaps subtle sclerotic focus CT October 24 axia l image 38 worrisome for metastatic lesion is less well-seen on August 21 CT. Stable prominent Schmorl n ode superior L4 endplate. Some small scattered hemangiomas. Multilevel vacuum disc phenomenon and tonio rly moderate disc space narrowing. Multilevel vacuum disc phenomenon. The conus medullaris is normal in position and signal ending superior L1 level. Moderate multilevel anterior spurring. Axial images at the T12-L1 level show moderate broad disc bulge effacing anterior thecal sac with mil d facet degenerative changes limits flavum hypertrophy effacing posterolateral thecal sac. There is m ild bilateral neural foraminal narrowing. Axial images at the L1-L2 level show moderate broad disc bulge effacing the anterior thecal sac and m ild facet degenerative changes bilaterally. There is mild bilateral inferior neural foraminal narrowi ng, left greater than right. Axial images at L2-L3 level show advanced broad disc bulge effacing the anterior thecal sac and mild- to-moderate facet degenerative changes bilaterally with some effacement of the right posterior latera l thecal sac. There is mild to moderate left greater than right bilateral anterior inferior neural fo raminal narrowing. Axial images at L3-L4 levels moderate facet degenerative changes with marked ligament hypertrophy pro ducing posterolateral thecal sac. There is moderate broad disc bulge with right paracentral/foraminal disc protrusion component effacing at the lateral thecal sac. There is moderate right-sided inferior neural foraminal narrowing. Left-sided neural foramina is patent. Axial images at L4-L5 level show advanced facet degenerative changes bilaterally and ligamentum flavu m hypertrophy. There is advanced broad disc bulge with right lateral disc protrusion component effaci ng the anterior thecal sac. Spinal canal stenosis noted sagittal image 7 and axial image 7. There is [id number]-[id number] left and xbygwvjd-lt-hbotuw inferior right-sided neural foraminal narrowing. Axial images at L5-S1 level shows moderate broad-based disc bulge effacing anterior thecal sac. There is moderate facet degenerative changes bilaterally. There is zwwz-ks-hljqvncv bilateral anterior inf erior neural foraminal narrowing noted. Redemonstration of some asymmetric left iliopsoas muscular atrophy and abnormal left-sided retroperit cha lymph nodes. For reference left periaortic lymph node measures 1.7 x 1.3 cm axial image [address] axial image 52 likely stable accounting for technical differences IMPRESSION: Stable mony-cz-yddqwtwc subacute or chronic compression fracture T12 level without abnorm al edema or posterior retropulsion. Subtle metastatic focus anterior right L1 level is thought presen t. Consider whole-body bone scan to assess for additional metastatic lesions. Multilevel degenerative changes are seen as detailed above. 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
== END | disposition home or self-care (01) ==
LOC: RADMRIMAIN 11:25
PROVIDERS: ATTEND Orthopaedic Surgery
DX: S22.089S Unspecified fracture of T11-T12 vertebra, sequela (principal); M47.26 Other spondylosis with radiculopathy, lumbar region; C78.6 Secondary malignant neoplasm of retroperitoneum and peritoneum; Z85.46 Personal history of malignant neoplasm of prostate
CPT/HCPCS: 72148

== ENCOUNTER → 2019-01-16 | Outpatient (CLI) | payer MEDICARE, BC ==
[2019-01-16 14:06] LABS: African American GFR (CKD) >90 (>60 ml/min/1.73 sqM); Blood Urea Nitrogen 22 mg/dL (9-20); Non-African American GFR(CKD) 78 (>60 ml/min/1.73 sqM)
--- NOTE | 2019-01-16 16:09 | CT ---
EXAMINATION TYPE: CT abdomen pelvis w con DATE OF EXAM: 01/16/2019 COMPARISON: 10/24/2018 HISTORY: 88-year-old male Prostate CA follow up TECHNIQUE: Contiguous axial scanning of the abdomen and pelvis following administration of 100 ml Iso dean 300 IV contrast. Delayed images through the kidneys and coronal/sagittal reconstructions perform ed. CT DLP: 1984 mGycm Automated exposure control for dose reduction was used. FINDINGS: Heart upper limits of normal in size without pericardial effusion. Three-vessel coronary artery calci fications are present as well as aortic valvular calcifications. Ectatic ascending aorta 3.6 cm. Prominent strandy areas of atelectasis in the lower lungs and possible underlying emphysema. Similar truncated appearance to the margin of the right hepatic lobe. No focal lesion or biliary duct al dilatation. Portal venous system is patent. Gallbladder, adrenal glands, right kidney, spleen, and pancreas appear within normal limits. 1.3 cm exophytic hypodensity anterior left kidney, probable cortical cyst. No dilated small bowel, free fluid, or free air. Mild stool burden. Oral contrast progressed to small bowel loops in the right side of the abdomen. Si gmoid diverticulosis without pericolonic inflammatory change. Significant interval improvement in previous retroperitoneal lymphadenopathy. Left. Lymph nodes now m easure up to 1.0 cm as compared to 2.1 cm, previously. The previous shailesh mass encasing the left comm on iliac artery now only shows the density measuring 4.3 x 2.6 cm versus 6.2 x 4.2 cm, previously. The previous right retrocrural lymphadenopathy has resolved. Right external iliac chain lymph node measures 9 mm versus 1.7 cm, previously. Left external iliac ch ain lymph node measures 8 mm versus 2.1 cm, previously. Patulous left inguinal canal. Bladder urine distended with mild circumferential wall thickening, impr parker from prior. Resting gland mildly enlarged at 4.5 cm wide. Bones: Heterotopic ossification along the right iliopsoas tendon. Calcification along the hamstrings tendons are possible CPPD. New focus of sclerosis within the right sacral alar measures 1.0 cm. Additional sclerosis anterior ri ght iliac bone on axial image 62 and 75. Scattered sclerotic foci within the lumbar spine is new. IMPRESSION: 1. TREATMENT RESPONSE WITH SIGNIFICANT IMPROVEMENT IN THE PREVIOUS RETROPERITONEAL, RETROCRURAL, AND ILIAC CHAIN LYMPHADENOPATHY. LARGEST LYMPH NODE NOW MEASURES 1.0 CM IN THE LEFT PERIAORTIC REGION ROSIBEL KANU 2.1 CM, PREVIOUSLY. 2. RESOLUTION OF PREVIOUS LEFT-SIDED HYDRONEPHROSIS. THE SOFT TISSUE ENCASEMENT OF THE LEFT COMMON IL IAC ARTERY SHOWS SIGNIFICANT IMPROVEMENT NOW MEASURING 4.3 X 2.6 CM (VERSUS 6.2 X 4.2 CM, PREVIOUSLY) . 3. NEW SCLEROTIC OSSEOUS LESIONS WITHIN THE RIGHT SACRAL ALA, RIGHT ILIAC BONE, AND LUMBAR SPINE. GIV EN OVERALL TREATMENT RESPONSE, FINDINGS MAY REFLECT HEALING CHANGE OF PREVIOUSLY OCCULT OSSEOUS METAS TATIC DISEASE.
== END | disposition home or self-care (01) ==
LOC: RADCTMAIN 12:33
PROVIDERS: ATTEND Internal Medicine Hematology & Oncology
DX: M89.8X8 Other specified disorders of bone, other site (principal); C61 Malignant neoplasm of prostate
CPT/HCPCS: 36415; 74177; 82565; 84520

== ENCOUNTER → 2020-07-21 | Outpatient (CLI) | payer MEDICARE, BC ==
[2020-07-21 11:19] LABS: African American GFR (CKD) >90 (>60 ml/min/1.73 sqM); Blood Urea Nitrogen 22 mg/dL (9-20); Non-African American GFR(CKD) 80 (>60 ml/min/1.73 sqM)
--- NOTE | 2020-07-21 13:32 | CT ---
EXAMINATION TYPE: CT ChestAbdPelvis w con DATE OF EXAM: 07/21/2020 COMPARISON: CT abdomen and pelvis January 16, 2019 and older CTs HISTORY: Prostate cancer. Bone mets. CT DLP: 2727.2 mGycm. Automated Exposure Control for Dose Reduction was Utilized. CONTRAST: CT scan of the thorax, abdomen and pelvis is performed with oral and with IV Contrast, patient inject ed with 100 mL of Isovue M300. FINDINGS: LUNGS: Mild interstitial edema in the periphery bilaterally. No suspicious nodules or masses. Somewha t low lung volumes. There is no pleural effusion or pneumothorax seen. The tracheobronchial tree is patent. MEDIASTINUM: There are no greater than 1 cm hilar or mediastinal lymph nodes. No cardiomegaly or pe ricardial effusion is seen. Moderate to severe three-vessel coronary artery calcification. LIVER/GB: Stable somewhat small findings liver. PANCREAS: No significant abnormality is seen. SPLEEN: No significant abnormality is seen. ADRENALS: No significant abnormality is seen. KIDNEYS: No significant abnormality is seen. BOWEL: Oral contrast does not reach level of terminal ileum making evaluation of distal bowel slightl y suboptimal. No suspicious small or large bowel dilatation. Some scattered diverticula in the left a nd sigmoid colon. No CT evidence for acute diverticulitis GENITAL ORGANS: Some central calcifications and a normal size prostate.. LYMPH NODES: No new greater than 1cm abdominal or pelvic lymph nodes are appreciated. Only subcentime ter retroperitoneal or left periaortic lymph nodes remain present most prominent near axial image 69 diminished in size from most recent CT.. Some residual abnormal soft tissue near left iliac artery bi furcation axial image 92 remains present continued improvement from most recent study and older studi es OSSEOUS STRUCTURES: Moderate axial joint space loss in both hips. Mild to moderate height loss T12 le isabela. Multilevel spurring in the spine. Persistent nonspecific scattered sclerotic foci throughout the pelvis including bilateral iliac bones and right superior acetabulum. Persistent sclerotic round les ion posterior inferior L1 level. OTHER: Small to moderate-sized fat-containing left greater than right inguinal hernias. Moderate calc ified plaque of aorta extends into branch vessels. IMPRESSION: Continued improved adenopathy. Stable sclerotic osseous metastatic disease. No new mass or adenopathy seen.
--- NOTE | 2020-07-21 15:50 | NM ---
EXAMINATION TYPE: NM bone scan whole body DATE OF EXAM: 07/21/2020 COMPARISON: 07/21/2020 CT scan HISTORY: Prostate cancer Delayed whole-body scanning was performed following the injection of 22.2 mCi Tc 99m MDP. Images acq uired 3 hours post injection. FINDINGS: Abnormal uptake involving the ankles and feet and shoulders likely post arthritic. 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 There is asymmetric intense uptake involving the inferior right scapula as well as mild uptake involv ing the posterior left rib cage which is nonspecific. Intense abnormal uptake involving the right iliac bone and sacrum noted. Abnormal uptake involving the mandible and maxilla likely related to periodontal disease. Photopenic defects involving the knees likely postsurgical. IMPRESSION: 1. Abnormal uptake involving the shoulders likely post arthritic but x-ray correlation recommended. A bnormal uptake involving the right iliac bone and sacrum markedly intense uptake suspicious for metas tases. 2. Nonspecific uptake involving the vertebral column most likely in the basis of hypertrophic and deg enerative changes 3. Abnormal uptake involving the inferior right scapula suspicious for metastases.
== END | disposition home or self-care (01) ==
LOC: RADNMMAIN 10:37
PROVIDERS: ATTEND Internal Medicine Hematology & Oncology
DX: Z03.89 Encounter for observation for other suspected diseases and conditions ruled out (principal); C61 Malignant neoplasm of prostate; C79.51 Secondary malignant neoplasm of bone; R59.9 Enlarged lymph nodes, unspecified
CPT/HCPCS: 82565; 84520; 71260; 74177; 36415; 78306; A9503; Q9967 ×2

== ENCOUNTER → 2020-11-14 | Outpatient (CLI) | payer MEDICARE, BC ==
--- NOTE | 2020-11-14 15:11 | NM ---
EXAMINATION TYPE: NM bone scan whole body DATE OF EXAM: 11/14/2020 COMPARISON: Prior bone scan 07/21/2020 HISTORY: Prostate cancer with metastasis Delayed whole-body scanning was performed following the injection of 24.4 mCi Tc 99m MDP. Images acq uired 4 hours post injection. FINDINGS: Vague areas of uptake involving the femur bilaterally show intense uptake bilaterally. Multiple foci of uptake are present to include the ilium on the right, right sacrum as on prior. Multiple foci of r ib uptake are present as well as the lumbar spine, left sacrum and left ilium, bilateral ischium, lef t scapula, sternoclavicular joints on the right greater than left, right humerus and left humerus. IMPRESSION: There is been progression of metastatic disease. IMPRESSION:
== END | disposition home or self-care (01) ==
LOC: RADNMMAIN 10:12
PROVIDERS: ATTEND Internal Medicine Hematology & Oncology
DX: Z03.89 Encounter for observation for other suspected diseases and conditions ruled out (principal); C79.51 Secondary malignant neoplasm of bone
CPT/HCPCS: 78306; A9503